=== PATIENT | female | born 1945 | race Caucasian/White ===

== ENCOUNTER → 2019-12-05 | Outpatient (REF) | payer MEDICARE ==
[~2019-12-05] MED LIST: ADVA250A INH; ALIS150T PO; BUTR5DIS2 TD; ESCI10TA2 PO; FURO40TA2 PO; LISI5TAB PO; MAPA500T17 PO; METO25TA2 PO; MULTCAP8 PO; NITR0.4D6 SL; OMEP40CA2 PO; PRESSURE VISION PO; PROAAER IN; [UNRECOGNIZED DRUG - CODE] PO
[2019-12-05 19:33] LABS: PERCENT SATURATION 21.7 % (13.2-45.0)
== END ==
LOC: M LAB REF 17:41
PROVIDERS: ATTEND Internal Medicine Nephrology
DX: D64.9 Anemia, unspecified (principal)

== ENCOUNTER → 2022-10-24 | Outpatient (REF) | payer MEDICARE ==
[2022-10-24 18:28] LABS: PERCENT SATURATION 19.9 % (13.2-45.0)
== END ==
LOC: M LAB REF 16:58
PROVIDERS: ATTEND Internal Medicine Nephrology
DX: D50.9 Iron deficiency anemia, unspecified (principal)

== ENCOUNTER → 2024-03-28 | Outpatient (REF) | payer MEDICARE ==
[2024-03-28 18:04] LABS: FREE T4 1.02 NG/DL (0.89-1.76)
[2024-03-28 18:05] LABS: THYROID STIMULATING HORMONE 1.893 uIU/ML (0.55-4.78)
== END ==
LOC: M LAB REF 17:13
PROVIDERS: ATTEND Internal Medicine Nephrology
DX: E03.9 Hypothyroidism, unspecified (principal)

== ENCOUNTER → 2025-07-31 | Outpatient (REF) | payer MEDICARE ==
[2025-07-31 18:18] LABS: IRON (FE) 60.0 UG/DL (50-170); PERCENT SATURATION 19.2 % (13.2-45.0)
== END ==
LOC: M LAB REF 17:35
PROVIDERS: ATTEND Internal Medicine Nephrology
DX: D50.9 Iron deficiency anemia, unspecified (principal)